=== PATIENT | female | born 1970 | race Caucasian/White ===

== ENCOUNTER 2021-11-03 10:10 | Day surgery (SDC) | payer OTHER ==
[2021-11-03] MEDS ORDERED: MIDAZOLAM HCL 2 MG/2 ML SINGLE DOSE VIAL ONE (11:15)
[2021-11-03] MEDS ORDERED: ONDANSETRON 4 MG/2 ML VIAL ONE (11:15)
[2021-11-03 11:38] VITALS: BMI 21.9
[2021-11-03] MEDS ORDERED: METOCLOPRAMIDE HCL INJECTION 10 MG/2 ML VIAL ONE (12:28)
[2021-11-03 12:40] VITALS: TEMP 97.7
[2021-11-03 13:38] VITALS: BP 109/61; PULSE 91
== END 2021-11-03 13:47 | disposition home or self-care (01) ==
LOC: JASU-ENDO 10:10
PROVIDERS: ATTEND Internal Medicine Gastroenterology
PROC: 0DC68ZZ Extirpation of Matter from Stomach, Via Natural or Artificial Opening Endoscopic (ICD-10-PCS; principal; 2021-11-03 11:30)
DX: T18.2XXA Foreign body in stomach, initial encounter (principal); X58.XXXA Exposure to other specified factors, initial encounter; Y93.89 Activity, other specified; Y92.89 Other specified places as the place of occurrence of the external cause
CPT/HCPCS: 81025; C9803; U0003; U0005